=== PATIENT | male | born 1970 | race Caucasian/White ===

== ENCOUNTER 2021-07-18 14:04 | Outpatient (CLI) | payer MEDICAID, SELFPAY ==
[2021-07-18 15:34] LABS: Anion Gap 3 (5-15); BUN 14 mg/dL (7-18); Calcium,Total 8.6 mg/dL (8.5-10.1); Chloride 106 mmol/L (98-107); Creatinine, Serum 1.08 mg/dL (0.70-1.30); EST Glomerular Filtration Rate 77 mL/min (>60); Est Glom Filt Rate - Afr Amer 93 mL/min (>60); Glucose 104 mg/dL (74-106); Magnesium 2.2 mg/dL (1.6-2.6); Sodium Level 141 mmol/L (136-145); Thyroid Stim Hormone (TSH) 0.28 uIU/mL (0.358-3.74)
== END 2021-07-18 23:59 | disposition home or self-care (01) ==
LOC: LAB 14:07
PROVIDERS: PCP Nurse Practitioner Family; Referring Provider Internal Medicine Cardiovascular Disease; Visit Provider Internal Medicine Cardiovascular Disease
DX: I48.11 Longstanding persistent atrial fibrillation (principal); I42.8 Other cardiomyopathies; I11.0 Hypertensive heart disease with heart failure; I50.22 Chronic systolic (congestive) heart failure; E05.00 Thyrotoxicosis with diffuse goiter without thyrotoxic crisis or storm
CPT/HCPCS: 36415; 80048; 83735; 84436; 84443

== ENCOUNTER → 2021-11-14 | Outpatient (CLI) | payer MEDICAID, SELFPAY ==
--- NOTE | 2021-11-14 11:25 | ECHOD_ITS ---
Reason For Study: ATRIAL FIB/FLUTTER Procedure This was a 2D Doppler, Color Flow transthoracic echocardiogram. Exam performed in department. Left Ventricle Normal LV size. Mild concentric left ventricular hypertrophy. Left ventricular systolic function is normal. The estimated ejection fraction is 55 %. No regional wall motion abnormalities noted. Right Ventricle Normal RV size. Normal systolic function. Atria The left atrium is moderately enlarged. Normal right atrium. Mitral Valve Normal mitral valve. Tricuspid Valve Normal tricuspid valve. Aortic Valve Normal aortic valve. Trisinus/trileaflet aortic valve. Pulmonic Valve The pulmonic valve is not well visualized. Great Vessels Normal aortic root. The pulmonary artery is normal size. Normal inferior vena cava. Pericardium/Pleural No pericardial effusion. MMode/2D Measurements & Calculations LVIDd: 5.2 cm IVSd: 1.3 cm Ao root diam: 3.7 cm LVIDs: 3.7 cm LVPWd: 1.4 cm RVDd: 4.1 cm FS: 29.6 % LAV(MOD-bp): 119.7 ml LA A4 area: 30.3 cm2 LA dimension(2D): 5.1 cm LAV(MOD-bp) Indexed: 51.1 ml/m2 LAV(MOD-sp2): 115.4 ml LAV(MOD-sp4): 117.6 ml RA A4 area: 21.5 cm2 Doppler Measurements & Calculations MV E max maco: 71.5 cm/sec Ao V2 max: 96.0 cm/sec LV V1 max: 84.4 cm/sec Ao max P.7 mmHg LV V1 max P.9 mmHg Ao V2 mean: 67.9 cm/sec LV V1 mean P.4 mmHg Ao mean P.1 mmHg LV V1 mean: 54.2 cm/sec Ao V2 VTI: 19.4 cm LV V1 VTI: 16.8 cm PA V2 max: 67.6 cm/sec ECHO/Echo Complete Interpretation Summary Normal LV size. Left ventricular systolic function is normal. The estimated ejection fraction is 55 %. Mild concentric left ventricular hypertrophy. Ordering Physician: Brissa Sol Referring Physician: Erna Delvalle Performed By: Liliana Carlson, JESUS, RVT
== END | disposition home or self-care (01) ==
LOC: CVS 11:23
PROVIDERS: PCP Nurse Practitioner Family; Visit Provider Internal Medicine Cardiovascular Disease
DX: I48.11 Longstanding persistent atrial fibrillation (principal)
CPT/HCPCS: 93306

== ENCOUNTER 2022-03-11 10:54 | Day surgery (SDC) | payer MEDICAID, SELFPAY ==
--- NOTE | 2022-02-11 16:21 | PCM.HP.BLA ---
History and Physical Date of Admission: 02/18/22 Medardo Kiran is a 50-year-old man with a history of atrial fibrillation, hypertension, non ischemic cardiomyopathy.? He was diagnosed with Graves' disease in 2019.? He says that he had a stress test which was negative at that time.? An echocardiogram was done which demonstrated an ejection fraction of 60 to 65% with no wall motion abnormalities the right ventricle was moderately dilated and the right atrium was moderately dilated.? It appears that he was put on Eliquis Lasix and metoprolol.? Echocardiogram was in October 2020 demonstrating an ejection fraction of 35 to 40% with global hypokinesis noted.? His right ventricle was mildly reduced.? Echocardiogram in 10/2021 demonstrated and improved EF of 55% with a moderately enlarged RA.He is continuing to see endocrine for his graves disease.? He is now hypothyroid and they have been adjusting his methimazole. His most recent TSH is 14.? He his repeat TSH is normal. He is interested in pursuing a cardioversion. He feels better than he has before.? He is exercising routinely.? He sts that he feels better now that he has not missed his pills.? He has not needed to use his lasix.? He does not have any chest discomfort/heaviness/tightness.? He does not have any worsening symptoms of shortness of breath.? He denies any PND.? He does not have any orthopnea.? He does not have any symptoms of congestive heart failure.? He does not have any palpitations that he is aware of.? He does not have any lightheadedness or dizziness.? He does not have any near-syncope or syncope.? He does not have any lower extremity edema.? He does not have any symptoms of claudication. He is not on lisinopril.? He does not like the way it makes him feels. Allergies Penicillins Allergy (Unknown, Verified 01/18/22 11:19) Unknownprednisone Adverse Reaction (Intermediate, Verified 01/18/22 11:19) Nausea, abdominal painlisinopril Adverse Reaction (Verified 01/18/22 11:19) dizziness Medications sildenafil 100 mg tablet 100 mg PO DAILY PRN 07/17/21 [History Confirmed 01/18/22] furosemide 20 mg tablet 20 mg PO DAILY PRN edema 10/16/21 [History Confirmed 01/18/22] metoprolol succinate 50 mg tablet,extended release 24 hr 50 mg PO DAILY #90 tabs 01/03/22 [Rx Confirmed 01/18/22] apixaban 5 mg tablet (Eliquis) 5 mg PO BID #60 tabs 01/18/22 [Rx Confirmed 01/18/22] methimazole 5 mg tablet 5 mg PO DAILY 01/18/22 [History Confirmed 01/18/22] Ejection fraction %: 55 to 59 PFSH Medical History? Anxiety Chronic HFrEF (heart failure with reduced ejection fraction) COVID (04/21/21) Erectile dysfunction Gout Graves' disease (2019) Hyperthyroidism Longstanding persistent atrial fibrillation Migraines Non-ischemic cardiomyopathy Polycythemia Right ventricular systolic dysfunction Skin candidiasis Tobacco abuse Family History? Father Throat cancer DiabetesGrandfather CAD (coronary artery disease) Social History? Smoking Status:? Light Smoker (<10/day) Smokeless tobacco user:? chewing tobacco alcohol intake:? current alcohol intake frequency: a few times a month Alcohol type: hard liquor substance use type:? marijuana caffeine:? Yes Type: carbonated beverages Number of servings: 3 ROS Const Const: Negative for fatigue, weakness, headache(s), frequent falls, excessive sweating, weight gain or weight loss Eyes Eyes: Negative for blind spots, loss of peripheral vision, transient loss of vision, blurry vision, change in vision or double vision ENT ENT: Negative for headache(s), dizziness, tinnitus, Nosebleed/epistaxis or balance problems Cardio Chest Pain: No Palpitations: No Edema: None Muscle aches with walking: None Resp Respiratory: Negative for SOB with activity, SOB at rest, SOB orthopnea\SOB lying down or Cough GI GI: Negative nausea, vomiting, heartburn, bloating, vomiting blood/hematemesis, bright, red blood in stools or black,tarry stools : Negative for hematuria Musc Musc: Negative for muscle aches/ myalgia, muscle weakness, joint pain or balance problems Skin Skin: Negative rash or wounds Neuro Neuro: Negative for dizziness, lightheadedness, near syncope, syncope, orthostatic symptoms, frequent falls, headache(s), weakness, confusion, memory loss, restless legs, blurry vision or double vision Main Hematologic/Lymphatic: Negative for easy bleeding or easy bruising Endo Endo: Negative for fatigue, cold intolerance, heat intolerance or excessive sweating Psych Psych: Negative for anxiety or depression Allergy Allergy/Immunology: Negative for rash Cardiology Exam Const Appearance: cooperative, healthy appearing, comfortable, no acute distress and well developed Orientation: alert, awake and oriented x3 Head Head: normal to inspection Ears: hearing grossly normal bilaterally Nose: external nose normal Face and Sinus: face symmetric Mouth: oral mucosae normal, lip normal and moist mucous membranes Eyes General: appearance normal, both eyes and all related structures Eyelids: eyelids normal Conjunctivae: conjunctivae normal Pupils: PERRL EOM: EOM intact bilaterally Neck Neck: normal visual inspection and trachea midline; Negative no JVD Carotids: Negative bruit Chest Chest inspection: normal inspection of the chest Auscultation: Bilateral: Clear to Auscultation Cardio Palpation: normal PMI Rate: regular rate Rhythm: irregular rhythm Heart sounds: S1 normal and S2 normal; Negative rub, gallop or murmur GI GI: soft, no hepatosplenomegaly and bowel sounds present Neuro General: patient alert, patient awake, patient oriented x3 and CN's II-XI intact bilaterally Extremities Pulses: Normal: Right Posterior Tibial Pulse, Left Posterior Tibial Pulse, Right Radial Pulse and Left Radial Pulse Lower Extremity Edema: None: Bilateral Psych Psychological: normal affect Supplemental Info Supplemental Information Echocardiogram 10/2021: Normal LV size. Left ventricular systolic function is normal. The estimated ejection fraction is 55 %. Mild concentric left ventricular hypertrophy. ? ECHOCARDIOGRAM 11/24/2020 CONCLUSIONS: 1. The left ventricular systolic function is moderately decreased with a 35-40% estimated ejection fraction. 2. Enlarged right ventricle with reduced systolic function. 3. Mild biatrial dilatation. 4. Bubble study is negative for a [id number] shunt. 5. Patient is in atrial fibrillation at the time of the study. ECHOCARDIOGRAM 03/26/2018 CONCLUSION 1. Normal LV chambers size w/ normal systolic function EF 60-65% 2. Moderate RV enlargement with normal function 3. Moderate right atrial enlargement 4. Mild tricuspid regurgitation 5. Evidence of mild pulmonary hypertension Assessment and Plan Assessment and Plan Assessment & Plan Assessment/Plan (1) Longstanding persistent atrial fibrillation: (2) Non-ischemic cardiomyopathy: (3) Essential hypertension: (4) Graves' disease: PLAN: Plan (1) Longstanding persistent atrial fibrillation: ?Status:?Chronic ?Plan: Patient has been anticoagulated it does appear that his rate is controlled. His TSH is essentially normal. Will pursue a cardioversion. ? (2) Non-ischemic cardiomyopathy: ?Status:?Chronic ?Plan: This has improved.? He does not have any symptoms of congestive heart failure.? He will continue to use his metoprolol.? We will repeat echocardiograms as deemed appropriate. (3) Essential hypertension: ?Status:?Chronic ?Plan: Patient's blood pressure is initially elevated upon recheck it is better controlled. (4) Graves' disease: ?Status:?Chronic ?Plan: Encourage continue follow-up with endocrine
[2022-02-15 07:46] VITALS: BMI 35.6
[2022-03-11 11:15] LABS: Hematocrit 47.9 % (40-54); Hemoglobin 17.3 g/dL (13.0-16.5); Mean Corp Hgb Conc 36.1 g/dL (32-36); Mean Corpuscular Volume 105.3 fL (80-94); Mean Platelet Vol. 9.6 fl (6.2-12.0); Platelet Count 149 K/mm3 (150-450); RBC Distribution Width CV 12.8 % (11.6-14.6); RBC Distribution Width SD 50.1 fl (35.1-43.9); Red Blood Count 4.55 M/mm3 (4.6-6.2); White Blood Count 6.7 K/mm3 (4.4-11.0)
[2022-03-11 11:29] LABS: Anion Gap 4 (5-15); BUN 20 mg/dL (7-18); BUN/Creat Ratio 16.9 RATIO (10-20); Calcium,Total 9.4 mg/dL (8.5-10.1); Chloride 105 mmol/L (98-107); Creatinine, Serum 1.18 mg/dL (0.70-1.30); EST Glomerular Filtration Rate 69 mL/min (>60); Est Glom Filt Rate - Afr Amer 84 mL/min (>60); Glucose 110 mg/dL (74-106); Potassium 4.4 mmol/L (3.5-5.1); Sodium Level 140 mmol/L (136-145)
--- NOTE | 2022-03-11 12:26 | PCM.OP.BLANK ---
Problems Associated Problem List Diagnoses (1) Longstanding persistent atrial fibrillation: Operative Report Date of Procedure: 03/11/22 DC cardioversion. 51-year-old man with a history of chronic persistent atrial fibrillation. Patient has been on anticoagulation. Patient was seen by Dr. Leiva of the critical care division. Informed consent was obtained. Anterior-posterior pads were applied. The patient was administered 80 mg of intravenous propofol. 200 J of biphasic energy were applied with prompt reversal to sinus rhythm. Patient tolerated the procedure well. Conclusion: Successful DC cardioversion from atrial fibrillation to sinus rhythm. Follow-up as per office protocol
--- NOTE | 2022-03-11 12:31 | PRO.PCM_ITS ---
Procedure Report Date of Procedure: 03/11/22 CONSCIOUS SEDATION REPORT DATE OF SERVICE: March 11, 2022 BRIEF HISTORY OF PRESENT ILLNESS: The patient is a 51-year-old male who presented to [facility] for an elective outpatient cardioversion due to underlying atrial fibrillation. The patient does endorse a tobacco abuse history. However, he has never been diagnosed with COPD or asthma. The patient denies any prior anesthetic complications. His last surface echocardiogram demonstrated an ejection fraction of 55%. The patient is systemically anticoagulated on Eliquis. PHYSICAL EXAMINATION: VITAL SIGNS: Reviewed and were acceptable. GENERAL: The patient is a male, in no apparent distress, speaking in full sentences. HEENT: Normocephalic, atraumatic. Mucous membranes are moist and pink. Good mouth opening noted. Trachea is midline. Good neck mobility. CHEST: S1, S2 irregularly irregular. No murmurs, rubs or gallops were noted. LUNGS: Clear to auscultation bilaterally without appreciable wheezes, rales or rhonchi. ABDOMEN: Soft, nontender, nondistended. Positive bowel sounds. EXTREMITIES: There is no clubbing, cyanosis or edema. ASA Class: II DESCRIPTION OF PROCEDURE: After confirmation of informed consent, the patient's anesthesia plan was reviewed in detail. Propofol was chosen. Risks and benefits were reviewed and the patient agreed to proceed. At 1212, the patient was given 80 mg of propofol. The patient achieved an appropriate level of sedation and was given a 200 joule synchronized cardioversion by Dr. Ji at the bedside. This was successful in achieving normal sinus rhythm. The patient was monitored until 1225, at which time he reached his baseline mental status and function. The patient tolerated the procedure well. COMPLICATIONS: None ESTIMATED BLOOD LOSS: None RECOMMENDATIONS: Okay to recover in usual fashion. Procedures Pulmonary 9xxxx: 03001 Con Sedation
== END 2022-03-11 13:35 | disposition home or self-care (01) ==
PROVIDERS: PCP Nurse Practitioner Family; Referring Provider Internal Medicine Cardiovascular Disease; Visit Provider Internal Medicine Cardiovascular Disease
DX: I48.19 Other persistent atrial fibrillation (principal); I42.8 Other cardiomyopathies; I10 Essential (primary) hypertension; E05.00 Thyrotoxicosis with diffuse goiter without thyrotoxic crisis or storm; F17.200 Nicotine dependence, unspecified, uncomplicated; F12.90 Cannabis use, unspecified, uncomplicated; Z86.16 Personal history of COVID-19; Z79.01 Long term (current) use of anticoagulants; Z79.899 Other long term (current) drug therapy
CPT/HCPCS: 36415; 80048; 85027; 92960; 93005; J7040

== ENCOUNTER 2022-03-13 04:56 | Observation (INO) | payer MEDICAID, SELFPAY ==
[2022-03-13] VITALS (22 sets, daily range): BP systolic 117–146; BP diastolic 69–101; PULSE 44–60; RESP 15–18; TEMP 36.5–36.9; O2SAT 93–100; BMI 34.9
--- NOTE | 2022-03-13 04:59 | HP.PCM.HOS_ITS ---
HPI - General General Date of Admission: 03/13/22 HPI Narrative JOSE CARLOS BURRELL, is a 51 M who presents from an outside hospital secondary to 2 episodes of V. tach. He was recently cardioverted out of A. fib 2 days ago at this institution and was discharged home in stable condition. Yesterday he states that he noticed some chest tightness as well as fatigue. He took his blood pressure on his wrist blood pressure cuff and it was very high over 170 systolic which is unusual for him. He was still feeling a little bit off but decided to go to work while at work he continued to have chest tightness and so he decided to go to [facility] to see if he could test his blood pressure at [facility] upper arm cuff however it was not working so because he was not feeling well and given his recent cardioversion he elected to go to a local ER. While in the ER they noticed 2 runs of V. tach 1 was for 8 beats the other was for 10 beats. They started him on amiodarone and since it was a stand-alone ER requested admission to this institution. He denies any chest pain, lightheadedness, syncope, shortness of breath, palpitations. [facility] Medical History Anxiety Chronic HFrEF (heart failure with reduced ejection fraction) COVID (04/21/21) Erectile dysfunction Gout Graves' disease (2019) Hyperthyroidism Longstanding persistent atrial fibrillation Migraines Non-ischemic cardiomyopathy Polycythemia Right ventricular systolic dysfunction Skin candidiasis Tobacco abuse Home Medications sildenafil 100 mg tablet 100 mg PO DAILY PRN Erectile Dysfunction 07/17/21 [History Last Taken Unknown] furosemide 20 mg tablet 20 mg PO DAILY PRN PRN edema 10/16/21 [History Last Taken 2 Days Ago ~03/11/22 20 mg] metoprolol succinate 50 mg tablet,extended release 24 hr 50 mg PO DAILY #90 tabs 01/03/22 [Rx Last Taken 1 Day Ago ~03/12/22 50 mg] apixaban 5 mg tablet (Eliquis) 5 mg PO BID #60 tabs 01/18/22 [Rx Last Taken 1 Day Ago ~03/12/22 5 mg] methimazole 5 mg tablet 5 mg PO DAILY 01/18/22 [History Last Taken 1 Day Ago ~03/12/22 5 mg] Allergy/AdvReac Type Severity Reaction Status Date / Time Penicillins Allergy Unknown Unknown Verified 02/15/22 07:47 prednisone AdvReac Intermediate Nausea, Verified 02/15/22 07:47 abdominal pain lisinopril AdvReac dizziness Verified 02/15/22 07:47 Family History Father Throat cancer Diabetes Grandfather CAD (coronary artery disease) Surgical History no surgical history no surgical history Social History (Updated 03/13/22 @ 02:30 by Castro Thayer) housing: house current occupational status: employed Smoking Status: Current some day smoker tobacco type: cigarettes and smokeless tobacco Smokeless tobacco user: chewing tobacco alcohol intake: current alcohol intake frequency: a few times a month Alcohol type: hard liquor substance use type: marijuana caffeine: Yes Type: carbonated beverages Number of servings: 3 ROS Constitutional Constitutional: Reports fatigue; Denies chills, fever(s) or malaise Eyes Eyes: Denies blurry vision ENT HEENT: Denies headache(s) or nasal discharge Cardiovascular Cardiovascular: Denies chest pain, dyspnea on exertion or syncope Respiratory/Chest Respiratory/Chest: Denies cough, shortness of breath at rest or shortness of breath with exertion Gastrointestinal Gastrointestinal: Denies constipation, diarrhea, nausea or vomiting Genitourinary Genitourinary: Denies dysuria Neurologic Neurologic: Denies focal weakness, numbness or tremor(s) Psychiatric Psychiatric: Denies anxiety or depression Vital Signs Vital Signs Vital Signs: 03/13/22 01:50 03/13/22 02:07 03/13/22 03:00 Temperature 98.2 F 97.7 F L Temperature Source Oral Oral Pulse Rate 57 L 53 L 58 L Respiratory Rate 17 15 Respiratory Effort Respiratory Depth Respiratory Pattern Blood Pressure 132/91 H 132/93 H Blood Pressure Mean 104 106 Blood Pressure Source Monitor Blood Pressure Position Supine Blood Pressure Location Right Arm Pulse Ox 99 99 Oxygen Delivery Method Room Air Room Air 03/13/22 03:00 03/13/22 02:50 Temperature Temperature Source Pulse Rate 53 L Respiratory Rate Respiratory Effort Normal Respiratory Depth Normal Respiratory Pattern Normal Blood Pressure Blood Pressure Mean Blood Pressure Source Blood Pressure Position Blood Pressure Location Pulse Ox Oxygen Delivery Method Room Air Weight Weight: 257 lb 7.999 oz Body Mass Index (BMI) 34.9 Physical Exam Narrative General: Alert, Oriented x3, Cooperative, No apparent distress HEENT: Atraumatic, PERRLA, EOMI, Normocephalic Oral: Moist Mucosa Neck: Supple, No JVD Lungs: Clear to auscultation, Normal air movement, No rhonchi, No wheeze, No rales Cardiovascular: Regular rate, Regular Rhythm, Normal S1, Normal S2, No murmurs Abdomen: Soft, Non Tender, Non-Distended, No Hepato-splenomegaly Extremities: No edema, Capillary Refill Less than 3 Seconds Skin: No rashes, No breakdown Musculoskeletal: No Tenderness to Palpation of Joints or Extremities Neurological: Cranial nerves II-XII grossly intact, Motor Exam 5/5 strength throughout, Sensory exam intact to light touch and pain Psych/Mental Status: Normal Affect, Appropriate Assessment & Plan Assessment/Plan (1) V tach: PLAN: Plan 1. V. tach/persistent A. fib status post cardioversion/chronic systolic CHF ? He presented to the outside hospital and had a couple episodes of V. tach that were nonsustained. He was started on an amiodarone drip ? We will discontinue the amiodarone drip and observe on telemetry ? Continue with his metoprolol as well as Eliquis ? We will consult cardiology for an opinion given his recent cardioversion ? He does have an asymptomatic bradycardia but this appears to have been there on 01/18/2022, will monitor ? Continue with Lasix as needed 2. Hyperthyroidism ? Stable ? Continue with methimazole 3. Tobacco abuse ? Stable ? Discussed cessation ? Continue with the nicotine patch DVT: Eliquis Charges/Coding Visit Charges OBSV E&M: 32784 Initial observation care L2
--- NOTE | 2022-03-13 05:55 | EKG12_ITS ---
Test Reason : DCCV Blood Pressure : / mmHG Vent. Rate : 069 BPM Atrial Rate : 073 BPM P-R Int : 000 ms QRS Dur : 094 ms QT Int : 400 ms P-R-T Axes : 000 -22 022 degrees QTc Int : 428 ms Atrial fibrillation Septal infarct , age undetermined Abnormal ECG Confirmed by CARRIE CARTER, BRANDON ([id number]), slot editor JUSTYN RODRÍGUEZ ([id number]) on 03/13/2022 8:07:23 AM Referred By: DR WATSON Confirmed By:BRANDON BUTLER MD
[2022-03-13 06:23] LABS: Absolute Lymphocyte Count 2.94 X10^3/uL (0.83-4.51); Absolute Neutrophil Count 2.6 X10^3/uL (2.0-7.7); Basophil# 0.03 X10^3/uL; Basophil% 0.5 % (0-1); Eosinophil# 0.21 X10^3/uL; Eosinophils% 3.4 % (0-5); Hematocrit 46.2 % (40-54); Hemoglobin 15.8 g/dL (13.0-16.5); Lymphocyte # 2.94 X10^3/ul (0.83-4.51); Mean Corp Hgb Conc 34.2 g/dL (32-36); Mean Corpuscular Hgb 36.6 pg (27.0-32.0); Mean Corpuscular Volume 106.9 fL (80-94); Monocyte# 0.51 X10^3/uL; Monocyte% 8.1 % (0-10); NRBC Flagged by Analyzer 0 % (0-5); Neutrophil # 2.55 X10^3/uL (2.7-7.7); Neutrophil % 40.7 % (47-70); Platelet Count 144 K/mm3 (150-450); RBC Distribution Width CV 12.5 % (11.6-14.6); RBC Distribution Width SD 50.3 fl (35.1-43.9); Red Blood Count 4.32 M/mm3 (4.6-6.2); White Blood Count 6.3 K/mm3 (4.4-11.0)
[2022-03-13 06:55] LABS: Anion Gap 6 (5-15); BUN 16 mg/dL (7-18); BUN/Creat Ratio 18.5 RATIO (10-20); Calcium,Total 8.5 mg/dL (8.5-10.1); Chloride 106 mmol/L (98-107); Creatinine, Serum 0.87 mg/dL (0.70-1.30); EST Glomerular Filtration Rate 99 mL/min (>60); Est Glom Filt Rate - Afr Amer 120 mL/min (>60); Estimated Creatinine Clearance 111.49 ml/min; Glucose 107 mg/dL (74-106); Magnesium 2.2 mg/dL (1.6-2.6); Potassium 3.7 mmol/L (3.5-5.1); Sodium Level 139 mmol/L (136-145); Troponin-I HS 15 pg/mL (3.0-78.0)
--- NOTE | 2022-03-13 06:59 | ECHOCS_ITS ---
Reason For Study: AFIB/FLUTTER Procedure This was a 2D Doppler, Color Flow transthoracic echocardiogram. The study was technically difficult. Echo performed S/P RT radial heart catherization. PT was supine for exam. Limited views were obtained. Exam performed portable in patient room. Left Ventricle Normal LV size. The estimated ejection fraction is 35 %. Moderate global left ventricular systolic dysfunction. Stage 3 diastolic dysfunction. There is moderate global hypokinesis of the left ventricle. Right Ventricle Normal RV size. Normal systolic function. Atria Normal left atrium. Normal right atrium. Mitral Valve Mitral valve not well visualized. Tricuspid Valve The tricuspid valve is not well visualized. Mild tricuspid valve insufficiency. Pulmonary artery systolic pressure is 23 mmHg. Aortic Valve The aortic valve is not well visualized. Pulmonic Valve The pulmonic valve is not well visualized. Great Vessels Normal aortic root. Pericardium/Pleural No pericardial effusion. Medication Diluted definity 3.0ml given slow IV push to enhance endocardial definition. MMode/2D Measurements & Calculations LVIDd: 5.6 cm IVSd: 1.2 cm Ao root diam: 4.0 cm LVIDs: 4.4 cm LVPWd: 1.3 cm RVDd: 4.3 cm FS: 20.1 % LAV(MOD-bp): 127.4 ml LVAd ap4: 35.0 cm2 LVAd ap2: 33.2 cm2 LAV(MOD-bp) Indexed: 53.7 ml/m2 LVLd ap4: 9.6 cm LVLd ap2: 9.8 cm LAV(MOD-sp2): 129.3 ml EDV(MOD-sp4): 104.7 ml EDV(MOD-sp2): 90.7 ml LAV(MOD-sp4): 124.7 ml EDV(sp4-el): 108.4 ml EDV(sp2-el): 95.6 ml LVAs ap4: 25.3 cm2 LVAs ap2: 23.2 cm2 LVLs ap4: 8.6 cm LVLs ap2: 8.9 cm ESV(MOD-sp4): 60.7 ml ESV(MOD-sp2): 49.9 ml ESV(sp4-el): 63.0 ml ESV(sp2-el): 51.3 ml EF(MOD-sp4): 42.0 % EF(MOD-sp2): 45.0 % EF(sp4-el): 41.9 % SV(MOD-sp4): 43.9 ml SV(MOD-sp2): 40.8 ml SV(sp4-el): 45.4 ml LA A4 area: 31.3 cm2 LA dimension(2D): 5.4 cm RA A4 area: 21.5 cm2 Time Measurements MV dec time: 0.23 sec Doppler Measurements & Calculations MV E max benja: 64.3 cm/sec Lat Peak E' Benja: 16.4 cm/sec Med Peak E' Benja: 8.5 cm/sec MV A max benja: 27.1 cm/sec E/E' lat: 3.9 E/E' med: 7.5 MV E/A: 2.4 Ao V2 max: 111.7 cm/sec LV V1 max: 67.0 cm/sec MV dec slope: 281.3 cm/sec2 Ao max P.0 mmHg LV V1 max P.8 mmHg PA V2 max: 77.0 cm/sec TR max benja: 224.4 cm/sec TR max P.1 mmHg ECHO/Echo Complete W/ Contrast Interpretation Summary Normal LV size. The estimated ejection fraction is 35 %. Moderate global left ventricular systolic dysfunction. There is moderate global hypokinesis of the left ventricle. Stage 3 diastolic dysfunction. Ordering Physician: Chon Ji Referring Physician: Erna Delvalle Performed By: Liliana Carlson RDCS, RVT
--- NOTE | 2022-03-13 07:15 | NURSING ---
Pt c/o chest pain this morning. Placed on O2 @2l. VS obtained, EKG ordered. Pt states it is mid sternal and started while walking in room. Pain dissipated shortly afterward. Messaged Dr Clayton regarding EKG and chest pain, no new orders received. Dr Ji rounded right after and was informed of chest pain also.
[2022-03-13 07:54] LABS: Phosphorus 2.7 mg/dL (2.5-4.9)
--- NOTE | 2022-03-13 08:30 | CON.PCM.CA_ITS ---
Assessment & Plan Assessment/Plan (1) V tach: PLAN: He presents with short episodes of wide-complex tachycardia. The above is suggestive of ventricular tachycardia. I would recommend and he underwent a cardiac catheterization today which excluded obstructive coronary disease. His estimated ejection fraction was approximately 25 to 30%. * Will continue aggressive treatment with a beta-britton * Will consider EP evaluation (2) Longstanding persistent atrial fibrillation: PLAN: He is in sinus rhythm at this time and the plan to be to continue him on the beta-britton as well as resume his anticoagulation. (3) Non-ischemic cardiomyopathy: PLAN: He does have evidence of a nonischemic cardiomyopathy with an estimated ejection fraction of 25 to 30%. Would recommend carvedilol 12.5 mg twice a day Recommend an ARB Consider SGLT2 inhibitor (4) Essential hypertension: PLAN: We will switch him from metoprolol to carvedilol Add losartan for blood pressure control Thank you for allowing me to participate in the care of your patient. Please don't hesitate to call if any issues arise. HPI Consult Data Date of Consult: 03/13/22 HPI Narrative HPI Narrative: JOSE CARLOS BURRELL, is a 51 M who presented to the emergency room at [facility] because he was having palpitations and his watch was telling him that he was having high rates and low blood pressure. He also had mild chest discomfort. He is a 50-year-old man with a history of atrial fibrillation, hypertension, non ischemic cardiomyopathy.? He was diagnosed with Graves' disease in 2019.? He has had a 2 had preserved left ventricular systolic fun ction and had been doing well but remained in atrial fibrillation. He had been on anticoagulation and was cardioverted back into sinus rhythm last week. He says that he was taking his medications and then suddenly felt this way. In the emergency room he was noted to have short runs of wide-complex tachycardia. He was put on an amiodarone drip and was transferred to this hospital. On arrival of the amiodarone drip was discontinued. Cardiology was asked to see him. He feels better than he has before.? He is exercising routinely.? He sts that he feels better now that he has not missed his pills.? He does not have any chest discomfort/heaviness/tightness.? He does not have any worsening symptoms of shortness of breath.? He denies any PND.? He does not have any orthopnea.? He does not have any symptoms of congestive heart failure.? He does not have any palpitations that he is aware of.? He does not have any lightheadedness or dizziness.? He does not have any near-syncope or syncope.? He does not have any lower extremity edema.? He does not have any symptoms of claudication. [facility] Medical History Anxiety Chronic HFrEF (heart failure with reduced ejection fraction) COVID (04/21/21) Erectile dysfunction Gout Graves' disease (2019) Hyperthyroidism Longstanding persistent atrial fibrillation Migraines Non-ischemic cardiomyopathy Polycythemia Right ventricular systolic dysfunction Skin candidiasis Tobacco abuse Home Medications sildenafil 100 mg tablet 100 mg PO DAILY PRN Erectile Dysfunction 07/17/21 [History Last Taken Unknown] furosemide 20 mg tablet 20 mg PO DAILY PRN PRN edema 10/16/21 [History Last Taken 2 Days Ago ~03/11/22 20 mg] metoprolol succinate 50 mg tablet,extended release 24 hr 50 mg PO DAILY #90 tabs 01/03/22 [Rx Last Taken 1 Day Ago ~03/12/22 50 mg] apixaban 5 mg tablet (Eliquis) 5 mg PO BID #60 tabs 01/18/22 [Rx Last Taken 1 Day Ago ~03/12/22 5 mg] methimazole 5 mg tablet 5 mg PO DAILY 01/18/22 [History Last Taken 1 Day Ago ~03/12/22 5 mg] Allergy/AdvReac Type Severity Reaction Status Date / Time Penicillins Allergy Unknown Unknown Verified 02/15/22 07:47 prednisone AdvReac Intermediate Nausea, Verified 02/15/22 07:47 abdominal pain lisinopril AdvReac dizziness Verified 02/15/22 07:47 Family History Father Throat cancer Diabetes Grandfather CAD (coronary artery disease) Surgical History no surgical history Social History housing: house current occupational status: employed Smoking Status: Current some day smoker tobacco type: cigarettes and smokeless tobacco Smokeless tobacco user: chewing tobacco alcohol intake: current alcohol intake frequency: a few times a month Alcohol type: hard liquor substance use type: marijuana caffeine: Yes Type: carbonated beverages Number of servings: 3 ROS Constitutional Constitutional: Reports fatigue; Denies chills, fever(s) or malaise Eyes Eyes: Denies blurry vision ENT HEENT: Denies headache(s) or nasal discharge Cardiovascular Cardiovascular: Denies chest pain, dyspnea on exertion or syncope Respiratory/Chest Respiratory/Chest: Denies cough, shortness of breath at rest or shortness of breath with exertion Gastrointestinal Gastrointestinal: Denies constipation, diarrhea, nausea or vomiting Genitourinary Genitourinary: Denies dysuria Neurologic Neurologic: Denies focal weakness, numbness or tremor(s) Psychiatric Psychiatric: Denies anxiety or depression Physical Exam Const alert, oriented x3 and no apparent distress General Appearance: cooperative HEENT hearing grossly normal bilaterally Head and Scalp: atraumatic Eyes EOMs intact bilaterally Neck General: normal visual inspection Chest inspection of chest normal and palpation of chest normal Resp normal respiratory effort Auscultation: clear to auscultation bilaterally Cardio regular rate, regular rhythm, S1 normal heart sound and S2 normal heart sound Jugular Venous Distention: JVD GI normal to inspection, nondistended, normoactive bowel sounds Extremity normal capillary refill and no pedal edema Peripheral Pulses: Yes pulses 2+ throughout and femoral pulses present Skin no rashes or lesions noted Neuro oriented x3 and CN's II-XII intact bilaterally Psych Appearance: grossly normal and appropriate Risk Stratification Risk Stratification Applicable: No Objective Data Vital Signs: Vital Signs Temp Pulse Resp BP Pulse Ox O2 Del Method 98.2 F 60 18 128/101 H 93 Room Air 03/13/22 07:32 03/13/22 07:32 03/13/22 07:32 03/13/22 07:32 03/13/22 07:32 03/13/22 07:32 Oxygen Delivery Method Room Air Weight: 257 lb 7.999 oz Body Mass Index (BMI) 34.9 Intake & Output: Intake and Output for Last 24 Hours 03/11/22 03/12/22 03/13/22 23:59 23:59 23:59 Intake Total 220 / 220 Balance 220 / 220 Lab / Micro Data Result Diagrams: 03/13/22 06:10 03/13/22 06:10 Labs: Laboratory Results - last 24 hr 03/13/22 06:10: Sodium 139, Potassium 3.7, Chloride 106, Carbon Dioxide 27.0, Anion Gap 6, BUN 16, Creatinine 0.87, Estim Creat Clear Calc 111.49, Est GFR (MDRD) Af Amer 120, Est GFR (MDRD) Non-Af 99, BUN/Creatinine Ratio 18.5, Glucose 107 H, Calcium 8.5, Magnesium 2.2, Troponin I High Sens 15 03/13/22 06:10: WBC 6.3, RBC 4.32 L, Hgb 15.8, Hct 46.2, MCV 106.9 H, MCH 36.6 H , MCHC 34.2 D, RDW Std Deviation 50.3 H, RDW Coeff of Vanesa 12.5, Plt Count 144 L , MPV 10.0, Immature Gran % (Auto) 0.300, Neut % (Auto) 40.7 L, Lymph % (Auto) 47.0 H, [place] % (Auto) 8.1, Eos % (Auto) 3.4, Baso % (Auto) 0.5, Absolute Neuts (auto) 2.6, Absolute Lymphs (auto) 2.94, Nucleated RBC % 0 03/13/22 06:10: Phosphorus 2.7 Cardiology Labs/Tests 03/13/22 06:10: Sodium 139, Potassium 3.7, Chloride 106, Carbon Dioxide 27.0, Anion Gap 6, BUN 16, Creatinine 0.87, Est GFR (MDRD) Af Amer 120, Est GFR (MDRD) Non-Af 99, BUN/Creatinine Ratio 18.5, Glucose 107 H, Calcium 8.5, Magnesium 2.2 03/13/22 06:10: WBC 6.3, RBC 4.32 L, Hgb 15.8, Hct 46.2, MCV 106.9 H, MCH 36.6 H , MCHC 34.2 D, Plt Count 144 L, MPV 10.0, Immature Gran % (Auto) 0.300, Neut % (Auto) 40.7 L, Lymph % (Auto) 47.0 H, [place] % (Auto) 8.1, Eos % (Auto) 3.4, Baso % (Auto) 0.5, Absolute Neuts (auto) 2.6, Nucleated RBC % 0 03/13/22 06:10: Phosphorus 2.7 Rhythm: EKG: ECHO: Stress Test: Cardiac Cath: PCI: CT Surgery: Holter monitor: EPS: PPM: CXR: Chest CT Scan:
--- NOTE | 2022-03-13 09:07 | CASEMGMT ---
According to the [facility] website, the following are in-network tertiary facilities: [facility], [place], [facility], [place], [facility], [facility], [facility], [place], [place], [facility], and . Jayme GUNN CM
[2022-03-13] MEDS: Losartan Potassium 25 MG Tablet PO (09:49)
[2022-03-13] MEDS: Carvedilol 12.5 MG Tablet PO ×2 (09:49→21:50)
[2022-03-13] MEDS: Amiodarone 200 MG Tablet PO (09:49)
[2022-03-13] MEDS: Methimazole 5 MG Tablet PO (09:50)
[2022-03-13] MEDS: APIXABAN 5 MG TABLET PO ×2 (09:50→21:50)
[2022-03-13] MEDS: Empagliflozin 10 MG Tablet PO (11:10)
--- NOTE | 2022-03-13 12:31 | PCM.HOSP.N ---
Hospitalist Note Patient was admitted early this morning after suffering 2 episodes of VT. He has a known history of atrial fibrillation for which she was cardioverted earlier this week. Patient taken to the [facility] this morning by cardiology and noted to have normal coronary arteries however his EF was noted to be 25 to 30%. Amiodarone was initiated by cardiology and his metoprolol was changed to Coreg. He was also placed on empagliflozin and losartan 25 mg daily p.o given his depressed EF. The plan is to watch him over the next 24 hours with probable discharge tomorrow as long as he remains stable. We will discharge him with a 48-hour Holter monitor and he will follow-up with cardiology as an outpatient. Again, suspected discharge date is 03/14/2022.
[2022-03-13] MEDS: Acetaminophen 325 MG Tablet 650 MG PO ×2 (15:33→21:49)
[2022-03-13 16:26] LABS: Thyroid Stim Hormone (TSH) 0.25 uIU/mL (0.358-3.74)
[2022-03-14 02:44] VITALS: BP 132/96; PULSE 44; RESP 18; TEMP 36.6; O2SAT 100
[2022-03-14 03:00] VITALS: PULSE 43
[2022-03-14 04:55] LABS: Absolute Lymphocyte Count 2.49 X10^3/uL (0.83-4.51); Absolute Neutrophil Count 1.9 X10^3/uL (2.0-7.7); Basophil# 0.02 X10^3/uL; Basophil% 0.4 % (0-1); Eosinophil# 0.19 X10^3/uL; Eosinophils% 3.7 % (0-5); Hematocrit 43.9 % (40-54); Hemoglobin 15.2 g/dL (13.0-16.5); Lymphocyte # 2.49 X10^3/ul (0.83-4.51); Lymphocyte % 48.3 % (19-41); Mean Corp Hgb Conc 34.6 g/dL (32-36); Mean Corpuscular Hgb 36.8 pg (27.0-32.0); Mean Corpuscular Volume 106.3 fL (80-94); Monocyte% 9.7 % (0-10); NRBC Flagged by Analyzer 0 % (0-5); Neutrophil # 1.92 X10^3/uL (2.7-7.7); Neutrophil % 37.3 % (47-70); Platelet Count 137 K/mm3 (150-450); RBC Distribution Width CV 12.6 % (11.6-14.6); RBC Distribution Width SD 50.4 fl (35.1-43.9); Red Blood Count 4.13 M/mm3 (4.6-6.2); White Blood Count 5.2 K/mm3 (4.4-11.0)
[2022-03-14 05:33] LABS: AST(SGOT) 13 U/L (15-37); Alanine Aminotransfer ALT/SGPT 30 U/L (16-61); Albumin, Serum 3.5 g/dL (3.2-5.0); Alkaline Phosphatase 61 U/L (45-117); Anion Gap 4 (5-15); BUN 19 mg/dL (7-18); BUN/Creat Ratio 17.8 RATIO (10-20); Calcium,Total 9.1 mg/dL (8.5-10.1); Chloride 105 mmol/L (98-107); Creatinine, Serum 1.07 mg/dL (0.70-1.30); EST Glomerular Filtration Rate 78 mL/min (>60); Est Glom Filt Rate - Afr Amer 94 mL/min (>60); Estimated Creatinine Clearance 90.65 ml/min; Globulin 3.6 g/dL (2.2-4.2); Glucose 81 mg/dL (74-106); Potassium 3.9 mmol/L (3.5-5.1); Protein, Total 7.1 g/dL (6.4-8.2); Sodium Level 140 mmol/L (136-145)
--- NOTE | 2022-03-14 06:51 | NURSING ---
Documentation reviewed with Castro GUNN.
[2022-03-14] MEDS: Acetaminophen 325 MG Tablet 650 MG PO (06:52)
[2022-03-14 08:25] VITALS: PULSE 47
[2022-03-14 09:23] VITALS: BP 123/89; PULSE 45; RESP 16; TEMP 36.5; O2SAT 96
[2022-03-14] MEDS: Carvedilol 12.5 MG Tablet PO (09:29)
[2022-03-14] MEDS: Amiodarone 200 MG Tablet PO (09:29)
[2022-03-14] MEDS: Losartan Potassium 25 MG Tablet PO (09:30)
[2022-03-14] MEDS: APIXABAN 5 MG TABLET PO (09:30)
--- NOTE | 2022-03-14 09:30 | DS.PCM_ITS ---
Providers Date of Admission: 03/13/22 Date of Discharge: 03/14/22 Primary Care Physician: KENDAL Singh Consultations 03/13/22 05:42 Consult: Cardiology Routine Consulting Provider: Chon Ji Reason for Consult: Recent cardioversion, presented with Vtach EMERGENT Consult: No MD Notified: Yes Date Notified: 03/13/22 Time Notified: 06:13 Method of Notification: Text Reason For Visit: VTACH Diagnosis Discharge Diagnosis (1) V tach: Status: Acute Code(s): I47.20 - Ventricular tachycardia, unspecified (2) Longstanding persistent atrial fibrillation: Status: Chronic Code(s): I48.11 - Longstanding persistent atrial fibrillation (3) Non-ischemic cardiomyopathy: Status: Chronic Code(s): I42.8 - Other cardiomyopathies (4) Essential hypertension: Status: Chronic Code(s): I10 - Essential (primary) hypertension Medications at Discharge Home Medications sildenafil 100 mg tablet 100 mg PO DAILY PRN Erectile Dysfunction 07/17/21 furosemide 20 mg tablet 20 mg PO DAILY PRN PRN edema 10/16/21 apixaban 5 mg tablet (Eliquis) 5 mg PO BID #60 tabs 01/18/22 methimazole 5 mg tablet 5 mg PO DAILY thyroid 01/18/22 amiodarone 200 mg tablet 200 mg PO DAILY #30 tabs 03/14/22 carvedilol 12.5 mg tablet 12.5 mg PO BID #60 tabs 03/14/22 empagliflozin 10 mg tablet (Jardiance) 10 mg PO DAILY #30 tabs 03/14/22 losartan 25 mg tablet 25 mg PO DAILY #30 tabs 03/14/22 Hospital Course Operations None Procedures 2-D Echocardiogram, Cardiac catheterization and EKG Summary of Care Provided Minutes Spent on Discharge: 36 Hospital Course: Mr. Kiran is a 51-year-old male who presented to an outside emergency department with 2 episodes of ventricular tachycardia that occurred while he was in the facility there. He evidently presented at the emergency department for some chest tightness and fatigue. He took his blood pressure on a wrist cuff prior to presentation note it was very high which she reported was unusual for him. After arriving to the emergency department they noted 2 short runs of VT. One was 8 beats and the other was 10 beats. He was started on amiodarone at the outside facility and request for transfer was made as his general activities therapist is at this institution. Of note he had been recently cardioverted on 03/11/2022 for atrial fibrillation. Patient reported that he had been compliant with his hold medications. Given his wide-complex tachycardia consistent with VT on presentation he was taken for cardiac catheterization at which time he was found to have no obstructive coronary disease. Unfortunately, his ejection fraction was found to be 25 to 30%. An echocardiogram was performed to confirm and showed an EF of 35% with moderate global LV dysfunction and moderate global hypokinesis of the LV with stage III diastolic dysfunction. He was maintained on beta-britton but this was converted from metoprolol to Coreg 12.5 mg p.o. twice daily, amiodarone 200 mg daily was started, Jardiance was initiated and an ARB with low-dose losartan was started as well with his heart failure and for improved blood pressure control. Cardiology also recommended a 48-hour Holter monitor to be performed at the time of discharge and this was ordered and set up prior to him leaving the hospital. He had no further ventricular ectopy through the night and he was felt stable to discharge on his his new medication regimen including the above noted medications. Prescriptions for these were faxed to his pharmacy and the floor arranged for his Holter monitor prior to discharge and this was placed prior to him leaving. He stated he has a follow-up appointment with cardiology on Friday the with Brissa Sol NP and I encouraged him to keep this appointment. He is to follow-up with his primary c are physician within the next 2 weeks. Discharge diagnoses: Wide-complex tachycardia consistent with ventricular tachycardia Nonischemic cardiomyopathy History of atrial fibrillation Hypertension History of migraines ED History of gout History of hyperthyroidism/Graves' disease Tobacco abuse Physical Exam Const alert, oriented x3, no apparent distress and well nourished Constitutional Narrative: Muscular, middle-aged, white male, sitting up in bed, nursing at bedside, p atient appears comfortable nontoxic, complaining only of a headache General Appearance: cooperative, comfortable, well kempt and well developed Orientation / Consciousness: awake, oriented to person, oriented to place and oriented to time Exam Limitations: no limitations HEENT normocephalic, head/scalp atraumatic, hearing grossly normal bilaterally and moist oral mucous membranes HEENT Narrative: Edentulous, Mallampati 2, no thrush Eyes PERRL, EOMs intact bilaterally and conjunctivae normal Eyes Narrative: No scleral icterus Neck no lymphadenopathy and supple Neck Narrative: Trachea midline, no thyroid enlargement Resp normal respiratory effort, no retractions, no use of accessory muscles and clear to auscultation bilaterally Auscultation: Negative for crackles, rales, rhonchi or wheezes Cardio regular rhythm, S1 normal heart sound, S2 normal heart sound, no murmurs, no rub, no gallops and no clicks Cardio Narrative: Sinus bradycardia GI normal to inspection, nondistended, normoactive bowel sounds, soft to palpation, non-tender and non-distended Extremity no clubbing, cyanosis or edema Extremity Narrative: 2+ pedal pulses, tender at right radial artery area from cardiac catheterization but no significant ecchymosis or swelling Skin no rashes or lesions noted, no wounds and skin turgor normal Neuro oriented x3, CN's II-XII intact bilaterally, moves all extremities and no focal motor deficits Speech: speech normal Motor Exam: strength 5/5 throughout Psych affect normal Psych Narrative: Appropriately interactive Weight / BMI Weight Weight: 116.8 kg Body Mass Index (BMI) 34.9 ABG / Lab / Microbiology Data Result Diagrams: 03/14/22 04:24 03/14/22 04:24 Laboratory: Laboratory Results - last 24 hr 03/13/22 06:10: TSH 0.25 L 03/14/22 04:24: WBC 5.2, RBC 4.13 L, Hgb 15.2, Hct 43.9, MCV 106.3 H, MCH 36.8 H , MCHC 34.6, RDW Std Deviation 50.4 H, RDW Coeff of Vanesa 12.6, Plt Count 137 L, MPV 10.0, Immature Gran % (Auto) 0.600, Neut % (Auto) 37.3 L, Lymph % (Auto) 48.3 H, [place] % (Auto) 9.7, Eos % (Auto) 3.7, Baso % (Auto) 0.4, Absolute Neuts (auto) 1.9 L, Absolute Lymphs (auto) 2.49, Nucleated RBC % 0 03/14/22 04:24: Sodium 140, Potassium 3.9, Chloride 105, Carbon Dioxide 31.0, Anion Gap 4 L, BUN 19 H, Creatinine 1.07, Estim Creat Clear Calc 90.65, Est GFR (MDRD) Af Amer 94, Est GFR (MDRD) Non-Af 78, BUN/Creatinine Ratio 17.8, Glucose 81, Calcium 9.1, Total Bilirubin 0.50, AST 13 L, ALT 30, Alkaline Phosphatase 61, Total Protein 7.1, Albumin 3.5, Globulin 3.6, Albumin/Globulin Ratio 1.0 Radiography Diagnostic Testing: Radiology Impression Echocardiogram 03/13/22 06:59 Interpretation Summary Normal LV size. The estimated ejection fraction is 35 %. Moderate global left ventricular systolic dysfunction. There is moderate global hypokinesis of the left ventricle. Stage 3 diastolic dysfunction. Ordering Physician: Chon Ji Referring Physician: Erna Delvalle Performed By: Liliana Carlson, JESUS, RVT D/C Instructions Discharge Diet: Low fat / Low cholesterol, 1800 Calorie Control Diet, 8 Cup Fluid Restriction and 4000 mg Sodium Diet Discharge Activity: Return to Normal Activity Return to work on: 03/15/22 Meaningful Use Info Meaningful Use Diagnoses (Choose all that apply): None applicable Discharge Plan Admission Admit Date/Time: 03/13/22 04:56 Primary Reason for Your Visit: Ventricular tachycardia Attending Provider: Fabiana Farmer Primary Care Provider: Erna Delvalle DOCTOR CHIROPRACTIC Consulting Providers: Chon Ji ; Praneeth Clayton Discharge Orders/Prescriptions Prescriptions: New amiodarone 200 mg Tablet 200 mg PO DAILY Qty: 30 1RF carvedilol 12.5 mg Tablet 12.5 mg PO BID Qty: 60 1RF Jardiance 10 mg Tablet 10 mg PO DAILY Qty: 30 1RF losartan 25 mg Tablet 25 mg PO DAILY Qty: 30 1RF Continued sildenafil 100 mg tablet 100 mg PO DAILY PRN (Reason: Erectile Dysfunction) Rx Instructions: administer 30 minutes to 4 hours before activity furosemide 20 mg tablet 20 mg PO DAILY PRN PRN (Reason: edema) methimazole 5 mg tablet 5 mg PO DAILY Eliquis 5 mg tablet 5 mg PO BID Qty: 60 11RF Discontinued metoprolol succinate 50 mg tablet extended release 24 hr 50 mg PO DAILY Qty: 90 3RF Other Ambulatory Orders: Cardiac Holter Monitor, 48 Hrs (Routine) Timeframe: 1 Day Facility: [facility] - Location: Cardiovascular Services Ordered By: Dr. Fabiana Farmer Referrals / Follow Up: Erna Delvalle NP, DOCTOR CHIROPRACTIC-C [Primary Care Provider] - Within 1 Month Brissa Sol, PA [Med Staff - Adv Practice Prof] - See Referral Note (as scheduled) Disposition Disposition (needs filled in before D/C Order can be placed): Home, Self Care Charges/Coding Visit Charges Inpatient E&M: 07484 Disch Hosp
[2022-03-14] MEDS: Methimazole 5 MG Tablet PO (09:31)
[2022-03-14] MEDS: Empagliflozin 10 MG Tablet PO (09:31)
[2022-03-14] MEDS: Ibuprofen 400 MG Tablet 800 MG PO (09:36)
[2022-03-14 09:40] VITALS: BP 123/89; PULSE 45; RESP 16; TEMP 36.5; O2SAT 96
--- NOTE | 2022-03-18 10:53 | CL.D_ITS ---
Patient Name: JOSE CARLOS BURRELL Study Date: 03/13/2022 Performing: Chon Ji MD Ht: 72 inches 182.88 cm : 1970 Wt: 257.8 lbs 116.8 kg Age: 51 Gender: male BSA: 2.37 PROCEDURE(S) PERFORMED [id number]-([id number])LHC/COR/LV CLINICAL PROFILE AND INDICATIONS Indications: Cardiac Arrythmia Heart Failure: None Stress/Imaging Stress/Image Study Performed: No CAD Presentations: Symptom unlikely to be ischemic. CONCLUSIONS Normal coronary arteries Cardiomyopathy: Dilated idiopathic RECOMMENDATIONS Medical therapy Will discuss with electrophysiology about next steps. DESCRIPTION OF PROCEDURE The patient arrived to the procedure lab. The risks and benefits of the procedure as well as a full description of our services here and current unavailability of surgical backup were fully explained to the patient and/or their significant other prior to the catheterization. The Timeout was completed, verifying the correct patient and procedure. The patient's procedural site was prepped and draped in the usual fashion. Local anesthetic was given subcutaneously to right radial region with Lidocaine 2%. Using a modified Seldinger technique, arterial access was obtained via the right radial artery, a 6Fr sheath was inserted. Left Coronary Artery selective angiography was performed in multiple views using a 5 Fr. 4.0 [place] catheter. Left Coronary Artery selective angiography was performed in multiple views using a 5 Fr. 4.0 [place] catheter. Right Coronary Artery selective angiography was then performed in multiple views using a 5 Fr. 4.0 [place] catheter. Left Ventriculography was performed in MOY projection using a 5 Fr. Pigtail catheter. LV to AO pullback pressures were then recorded.The arterial sheath was pulled and a TR Band was applied for hemostasis CORONARY ANGIOGRAPHY DOMINANCE: Right Dominant LEFT HEART ASSESSMENT Left Ventricular Ejection Fraction: by LV Gram 30 % Global Hypokinesis - Severe Depressed Left Ventricular systolic function LEFT MAIN: Angiographically normal LEFT ANTERIOR DESCENDING ARTERY: Angiographically normal CIRCUMFLEX ARTERY: Angiographically normal RIGHT CORONARY ARTERY: Angiographically normal COMPLICATIONS No Complications PROCEDURE MEDICATIONS Fentanyl 50 mcg IV Versed 1 mg IV Versed 1 mg IV Versed 1 mg IV Oxygen: 2 L/min via nasal cannula Aspirin (325mg) 1 Tabs PO @ 03/13/2022 08:13:24 Heparin given IA 03/13/2022 08:07:18 Verapamil 2.5mg, Ntg 100mcgs, 3000 units of Heparin given IA 03/13/2022 08:07:18 SUMMARY OF HEMODYNAMIC DATA Time AIR REST ECG 07:49:31 Art 140/84 (105) 08:09:34 AO 137/88 (109) SA 08:17:03 LV 126/11, 20 08:21:54 LV 130/14, 24 08:22:00 LV 126/14, 23 08:22:31 LV 135/16, 25 08:22:37 LVp 121/15, 23 08:22:43 AOp 124/72 (96) 08:22:48 Signed By Chon Ji MD On 03/18/2022 10:52:18 Chon Ji MD
== END 2022-03-14 09:35 | disposition home or self-care (01) ==
PROVIDERS: Admitting Provider Family Medicine; PCP Nurse Practitioner Family; Visit Provider Internal Medicine
DX: I47.29 Other ventricular tachycardia (principal); I11.0 Hypertensive heart disease with heart failure; I50.22 Chronic systolic (congestive) heart failure; I42.8 Other cardiomyopathies; I48.11 Longstanding persistent atrial fibrillation; Z79.01 Long term (current) use of anticoagulants; F17.220 Nicotine dependence, chewing tobacco, uncomplicated; Z86.16 Personal history of COVID-19; Z79.899 Other long term (current) drug therapy; F17.210 Nicotine dependence, cigarettes, uncomplicated; E05.90 Thyrotoxicosis, unspecified without thyrotoxic crisis or storm; E05.00 Thyrotoxicosis with diffuse goiter without thyrotoxic crisis or storm
CPT/HCPCS: C1769; C1894; 36415; 80048; 80053; 83735; 84100; 84443; 84484; 85025; 93005; 93306; 93458; 96361; 96374; 96375; 96376; 99152; 99153; 99218; 99285; 99406; J7040; Q9957; Q9967; A4216; C8929; G0378

== ENCOUNTER → 2022-03-14 | Outpatient (CLI) | payer MEDICAID, SELFPAY | END | disposition home or self-care (01) | LOC: PSN 10:51 | PROVIDERS: PCP Nurse Practitioner Family; Visit Provider Internal Medicine | DX: I47.20 Ventricular tachycardia, unspecified (principal) ==

== ENCOUNTER → 2022-05-03 | Outpatient (CLI) | payer MEDICAID, SELFPAY ==
[2022-05-03 11:56] LABS: Anion Gap 4 (5-15); BUN 18 mg/dL (7-18); BUN/Creat Ratio 15.3 RATIO (10-20); Calcium,Total 8.7 mg/dL (8.5-10.1); Chloride 103 mmol/L (98-107); Creatinine, Serum 1.18 mg/dL (0.70-1.30); EST Glomerular Filtration Rate 69 mL/min (>60); Est Glom Filt Rate - Afr Amer 84 mL/min (>60); Free T3 2.5 pg/mL (2.18-3.98); Glucose 76 mg/dL (74-106); Potassium 3.7 mmol/L (3.5-5.1); Sodium Level 140 mmol/L (136-145); T4 Free Direct 1.01 ng/dL (0.76-1.46); Thyroid Stim Hormone (TSH) 4.23 uIU/mL (0.358-3.74)
== END | disposition home or self-care (01) ==
PROVIDERS: PCP Nurse Practitioner Family; Referring Provider Physician Assistant Medical; Visit Provider Physician Assistant Medical
DX: I50.22 Chronic systolic (congestive) heart failure (principal); I47.20 Ventricular tachycardia, unspecified; I48.0 Paroxysmal atrial fibrillation
CPT/HCPCS: 36415; 80048; 83735; 84439; 84443; 84481

== ENCOUNTER → 2022-05-17 | Outpatient (CLI) | payer MEDICAID, SELFPAY ==
--- NOTE | 2022-05-17 12:46 | ECHOD_ITS ---
Reason For Study: AFIB Procedure This was a 2D Doppler, Color Flow transthoracic echocardiogram. Exam performed in department. Left Ventricle Normal LV size. Moderate concentric left ventricular hypertrophy. Left ventricular systolic function is lower limits of normal. The left ventricular ejection fraction is 50 %. Stage 2 diastolic dysfunction. There is borderline global hypokinesis of the left ventricle. Right Ventricle Normal RV size. Normal systolic function. Atria The left atrium is mildly enlarged. The right atrium is mildly enlarged. Mitral Valve Normal mitral valve. Tricuspid Valve Normal tricuspid valve. Aortic Valve Normal aortic valve. Pulmonic Valve Normal pulmonic valve. Great Vessels Normal aortic root. The pulmonary artery is normal size. Normal inferior vena cava. Pericardium/Pleural No pericardial effusion. MMode/2D Measurements & Calculations LVIDd: 5.1 cm IVSd: 1.4 cm Ao root diam: 3.4 cm LVIDs: 3.7 cm LVPWd: 1.7 cm RVDd: 5.2 cm FS: 27.7 % LAV(MOD-bp): 79.5 ml LVAd ap4: 42.8 cm2 SV(MOD-sp4): 95.2 ml LAV(MOD-bp) Indexed: 33.4 ml/m2 LVLd ap4: 9.0 cm LAV(MOD-sp2): 100.3 ml EDV(MOD-sp4): 164.5 ml LAV(MOD-sp4): 58.6 ml EDV(sp4-el): 172.4 ml LVAs ap4: 25.5 cm2 LVLs ap4: 7.8 cm ESV(MOD-sp4): 69.3 ml ESV(sp4-el): 71.0 ml EF(MOD-sp4): 57.9 % EF(sp4-el): 58.8 % SV(sp4-el): 101.4 ml LA A4 area: 22.4 cm2 LA dimension(2D): 5.1 cm RA A4 area: 23.1 cm2 Time Measurements MV dec time: 0.29 sec Doppler Measurements & Calculations MV E max benja: 66.3 cm/sec Lat Peak E' Benja: 13.1 cm/sec Med Peak E' Benja: 6.9 cm/sec MV A max benja: 34.0 cm/sec E/E' lat: 5.0 E/E' med: 9.6 MV E/A: 1.9 MV V2 max: 89.2 cm/sec Ao V2 max: 102.7 cm/sec MV max P.2 mmHg MV dec slope: 229.6 cm/sec2 Ao max P.5 mmHg MV V2 mean: 43.1 cm/sec Ao V2 mean: 70.9 cm/sec MV mean P.92 mmHg Ao mean P.5 mmHg MV V2 VTI: 38.5 cm Ao V2 VTI: 26.0 cm AV (velocity ratio): 0.85 LV V1 max: 96.7 cm/sec LV V1 max P.7 mmHg LV V1 mean P.0 mmHg LV V1 mean: 67.3 cm/sec LV V1 VTI: 22.2 cm ECHO/Echo Complete Interpretation Summary Normal LV size. Moderate concentric left ventricular hypertrophy. Left ventricular systolic function is lower limits of normal. The left ventricular ejection fraction is 50 %. Stage 2 diastolic dysfunction. Compared to previous study, the left ventricular systolic function has improved .. Ordering Physician: Brissa Sol Referring Physician: Brissa Sol Performed By: Johanna Fuller RCS
== END | disposition home or self-care (01) ==
LOC: CVS 12:38
PROVIDERS: PCP Nurse Practitioner Family; Referring Provider Physician Assistant Medical; Visit Provider Physician Assistant Medical
DX: I50.22 Chronic systolic (congestive) heart failure (principal); I48.0 Paroxysmal atrial fibrillation; I47.20 Ventricular tachycardia, unspecified
CPT/HCPCS: 93306